=== PATIENT | male | born 1945 | race Caucasian/White ===

== ENCOUNTER 2016-12-06 21:37 | Emergency (ER) | payer MEDICARE, OTHER ==
[~2016-12-06] VITALS: Ht 167.6 cm; Wt 75.5 kg
[~2016-12-06 21:37] MED LIST: ASPI81 PO; HYDR10SO PO; LEVO.125 PO; LISI-363 PO; MEDR4PAK3 PO; OMEP20TA39 PO; OXYC10TA8 PO; PERC5TAB12 PO; ROSU40 PO
[2016-12-06 21:44] VITALS: BP 131/82; PULSE 73; RESP 18; TEMP 98.1; O2SAT 99
[2016-12-06] MEDS ORDERED: LISI-515 PO (22:08)
[2016-12-06] MEDS ORDERED: LEVO137T2 PO (22:08)
--- NOTE | 2016-12-06 22:20 | PD ---
HPI Chief Complaint: Injury Time Seen by Provider: 22:18 Travel History International Travel<30 days: No Contact w/Intl Traveler<30days: No Traveled to known affect area: No History of Present Illness HPI 71-year-old male presents to emergency Department with injury to the right hand and wrist. Patient states he was using a power drill distress in pain when the drill jerked his hand twisting his wrist and arm suddenly. Patient now has pain along the dorsal radial wrist and across the dorsal carpal bones. Patient has difficulty making a fist secondary to pain. Patient states the pain radiates up to HIS elbow on along the dorsal aspect of the forearm. Patient is able to flex and extend his elbow on without difficulty. He has no pain in the upper right arm. He has no other complaints. He has no known drug allergies. PFSH Past Medical History Arthritis: Yes Asthma: No Autoimmune Disease: No Blood Disorders: No Anxiety: No Depression: No Heart Rhythm Problems: No Cancer: Yes (prostate) Cardiovascular Problems: Yes High Cholesterol: Yes Chemotherapy: No Chest Pain: Yes Congestive Heart Failure: No Diabetes: No Endocrine: Yes Gastrointestinal Disorders: Yes (pancreatitis) GERD: Yes Genitourinary: Yes Hepatitis: No Hiatal Hernia: No Hypertension: Yes Immune Disorder: No Musculoskeletal: Yes Neurologic: Yes (recent dizziness with associated dbl vision.) Psychiatric: No Reproductive: No Respiratory: Yes (WEARS NASAL STRIP AT NIGHT TO FACILITATE BREATHING) Pancreatitis: Yes Radiation Therapy: No Seizures: No Thyroid Disease: Yes Ulcer: No Past Surgical History Abdominal Surgery: Yes (APPENDECTOMY D/T RUPTURED AP, CHOLECYSTECTOMY, LAP INGUINAL HERNIA REPAIR L) AICD: No Appendectomy: Yes Cholecystectomy: Yes Ear Surgery: No Eye Surgery: No Genitourinary Surgery: Yes (L TESTICLE REMOVED, SCROTUM SURGERY,removal of prostate due to cancer) Neurologic Surgery: No Oral Surgery: No Pacemaker: No Other Surgery: Yes Social History Alcohol Use: Yes (BEER ONE PK PERMOUTH) Tobacco Use: No Substance Use: No Allergies-Medications (Allergen,Severity, Reaction): Coded Allergies: No Known Allergies (Verified , 12/06/16) Reported Meds & Prescriptions Reported Meds & Active Scripts Active Reported Lisinopril 20 Mg Tab 20 Mg PO DAILY Levothyroxine (Levothyroxine Sodium) 137 Mcg Tab 137 Mcg PO DAILY Review of Systems General / Constitutional: No: Fever Eyes: No: Visual changes HENT: No: Headaches Cardiovascular: No: Chest Pain or Discomfort Respiratory: No: Shortness of Breath Gastrointestinal: No: Abdominal Pain Genitourinary: No: Dysuria Musculoskeletal: Positive: Myalgias, Arthralgias, Limited ROM, Pain Skin: No Rash Neurologic: No: Weakness Psychiatric: No: Depression Endocrine: No: Polydipsia Hematologic/Lymphatic: No: Easy Bruising Physical Exam Narrative GENERAL: Patient appears mild to moderate distress. SKIN: Warm and dry. Normal color. Normal turgor. No signs of trauma. HEAD: Atraumatic. Normocephalic. EYES: Pupils equal and round. No scleral icterus. No injection or drainage. ENT: No nasal bleeding or discharge. Mucous membranes pink and moist. Airway is patent. NECK: Trachea midline. Supple nontender. CARDIOVASCULAR: Regular rate and rhythm. RESPIRATORY: No accessory muscle use. MUSCULOSKELETAL: Extremities without clubbing, cyanosis, or edema. No obvious deformities. Patient has significant tenderness along the right dorsal carpal area warm over the distal radius and the ulnar region. No obvious deformity. Range of motion is significantly diminished secondary to pain along the dorsal wrist and forearm. Neurovascular exam distally is intact and normal. Elbow is unremarkable, however supination and pronation is limited secondary to pain. NEUROLOGICAL: Awake and alert. No obvious cranial nerve deficits. Motor grossly within normal limits. Five out of 5 muscle strength in the arms and legs. Normal speech. PSYCHIATRIC: Appropriate mood and affect; insight and judgment normal. Data Data Last Documented VS Vital Signs Date Time Temp Pulse Resp B/P Pulse Ox O2 Delivery O2 Flow Rate FiO2 12/06/16 21:44 98.1 73 18 131/82 99 Orders Wrist, Complete ([id number]) (12/06/16 22:17) Ketorolac Inj (Toradol Inj) (12/06/16 22:30) Acetamin-Hydrocod 325-7.5 Mg ([place] 7.5 (12/06/16 22:30) Support Splint (12/06/16 22:44) Splint Or Brace Apply/Monitor (12/06/16 22:44) [facility] Medical Decision Making Medical Screen Exam Complete: Yes Emergency Medical Condition: Yes Differential Diagnosis Right wrist sprain. Carpal fracture. Radial fracture. Narrative Course Patient is medically stable at time of exam. Patient is given Lortab 7.5/325 by mouth. Patient is given Toradol 30 mg IM. Ice is applied to the injured area. X-ray of the right wrist is ordered. No obvious fracture dislocation is noted on x-ray by my wet read. Patient is placed in a sugar tong splint and sling for comfort. Patient is given ibuprofen 600 mg 4 times a day #40. Patient also given Lortab 5/325 one to 2 tabs every 6 hours when necessary pain #20. Patient is to keep the splint on and ice as discussed until seen by his primary care physician next week. Patient can return the emergency Department with worsening symptoms if necessary. Diagnosis Primary Impression: Extensor tenosynovitis of right wrist Additional Impression: Other specified sprain of right wrist, initial encounter Referrals: Primary Care Physician Patient Instructions: General Instructions, How to Use a Sling (GEN), Splint Care (DC), Wrist Sprain (ED) Additional Instructions: No obvious fracture dislocation is noted on x-ray by my wet read. Patient is placed in a sugar tong splint and sling for comfort. Patient is given ibuprofen 600 mg 4 times a day #40. Patient also given Lortab 5/325 one to 2 tabs every 6 hours when necessary pain #20. Patient is to keep the splint on and ice as discussed until seen by his primary care physician next week. Patient can return the emergency Department with worsening symptoms if necessary. Med/Other Pt SpecificInfo: Prescription(s) given Scripts Hydrocodone-Acetaminophen (Lortab)5-325 Mg Tab1-2 Tab PO Q6H PRN (PAIN) #20 TAB Prov:Kirti Ward MD 12/06/16 Ibuprofen 600 Mg Glo468 Mg PO Q6H PRN (Pain/Inflammation) #40 TAB Prov:Kirti Ward MD 12/06/16 Disposition: 01 DISCHARGE HOME Condition: Stable Rinku Vasquez Dec 06, 2016 22:20
[2016-12-06] MEDS ORDERED: KETOROLAC TROMETHAMINE 60 MG/2 ML (IM) VIAL IM ONE (22:30)
[2016-12-06] MEDS ORDERED: ACETAMINOPHEN/HYDROcodone 325 MG/7.5 MG TAB PO ONE (22:30)
[2016-12-06] MEDS ORDERED: IBUP-232 PO (22:47)
[2016-12-06] MEDS ORDERED: HYDR-3533 PO (22:47)
--- NOTE | 2016-12-06 23:04 | RADHPO ---
EXAM DATE/TIME: 12/06/2016 22:31 [place] COMPARISON: No previous studies available for comparison. INDICATIONS : Right wrist pain post fall. MEDICAL HISTORY : None. SURGICAL HISTORY : Carpal tunnel syndrome. ENCOUNTER: Initial ACUITY: 1 day PAIN SCORE: 10/10 LOCATION: Right upper extremity FINDINGS: Three view examination of the right wrist demonstrates no soft tissue swelling, dislocation, or fract ure. The carpal bones are in normal alignment. The joint spaces are maintained. Bony mineralizatio n is normal. CONCLUSION: Unremarkable examination of the right wrist. Pablo Santos MD on December 06, 2016 at 23:01 Board Certified Radiologist. This report was verified electronically.
[2016-12-07] MEDS ORDERED: ASPI1TAB69 PO (15:34)
--- NOTE | 2016-12-07 17:04 | MB ---
cc: ART SANTANA MD DATE OF CONSULTATION: 12/07/2016. REASON FOR CONSULTATION: Right wrist and hand pain. HISTORY OF PRESENT ILLNESS: The patient is a 71-year-old right hand-dominant male with history of hypertension who presented to the emergency department yesterday with complaints of a twisting injury to the right wrist. The patient states he was using a power drill and had a twisting injury to the right wrist. The patient states the wrist deviated laterally and bent and flexed. The patient was seen in the emergency room. He had x-rays done which were negative. He was put in a sugar-tong splint, was prescribed anti-inflammatory pain medication and sent home. The patient presented today with worsening pain over the right wrist and hand region. He also complains of a tingling sensation in the thumb and index finger. The patient states the pain is worse with range of motion of the fingers. He also states he has difficulty with finger range of motion as well as wrist range of motion. The patient had difficulty sleeping last night. He denies any open wounds. The patient gives a history of bilateral carpal tunnel release in the past. He denies any history of gout in the past. PHYSICAL EXAMINATION: On examination, the patient is alert, oriented x3 and in pain. Examination of the right upper extremity reveals mild swelling over the dorsal aspect of the wrist. Swelling over the fingers is also noted. Tenderness noted over the dorsal and volar aspects of the wrist. Wrist range of motion is limited and painful. Forearm rotations are painful and limited. Finger range of motion is painful and limited. The volar and dorsal compartments of the forearm appear supple. Hand compartment muscles also appear to be supple. He has intact distal circulation. He also has intact sensation distally. He has a healed surgical scar over the carpal tunnel region. He has palpable radial pulses. LABORATORY DATA: His lab work was reviewed and this was done yesterday and the white count was 13.1. He has a neutrophil shift of 81%. IMAGING STUDIES: X-rays of the right wrist done yesterday were reviewed and show slight widening of the distal radioulnar joint. No evidence of fracture noted. ASSESSMENT: 71-year-old male with a twisting injury to the right wrist for one day with worsening pain. PLAN: My differential diagnosis is either gout or acute carpal tunnel syndrome and exacerbation of carpal tunnel syndrome. The plan will be to keep the limb elevated. Short-arm volar splint was applied leaving the finger joints free. Will start him on oral steroids and will obtain serum uric acid levels. Will monitor the patient with neurovascular checks and monitor his progress. Art Santana MD SE/VONDA /4:37 PM /4:50 PM MTDD
== END 2016-12-06 23:12 | disposition home or self-care (01) ==
LOC: PHEFT 21:37
DX: M65.841 Other synovitis and tenosynovitis, right hand (principal); S63.591A Other specified sprain of right wrist, initial encounter; W22.8XXA Striking against or struck by other objects, initial encounter; Y93.89 Activity, other specified; Y92.9 Unspecified place or not applicable; Y99.9 Unspecified external cause status
CPT/HCPCS: 29125; 73110; 96372; 99283; J1885

== ENCOUNTER 2016-12-07 14:26 | Observation (INO) | payer MEDICARE, OTHER ==
[~2016-12-07] VITALS: Ht 167.6 cm; Wt 73.1 kg
[~2016-12-07 14:26] MED LIST changes: -ASPI81 PO; +HYDR-3533 PO; -HYDR10SO PO; +IBUP-232 PO; -LEVO.125 PO; +LEVO137T2 PO; -LISI-363 PO; +LISI-515 PO; -MEDR4PAK3 PO; -OMEP20TA39 PO; -OXYC10TA8 PO; -PERC5TAB12 PO; -ROSU40 PO
[2016-12-07 14:28] VITALS: BP 156/89; PULSE 62; RESP 22; TEMP 97.7; O2SAT 100
[2016-12-07] MEDS ORDERED: ONDANSETRON HCL 4 MG/2 ML VIAL IV PUSH ONE (14:45)
[2016-12-07] MEDS ORDERED: MORPHINE SULFATE 4 MG/ML INJ IV PUSH ONE (14:45)
--- NOTE | 2016-12-07 15:06 | PD ---
HPI Chief Complaint: Pain: Acute or Chronic Time Seen by Provider: 14:38 Travel History International Travel<30 days: No Contact w/Intl Traveler<30days: No Traveled to known affect area: No History of Present Illness HPI The patient is a 71-year-old male who presents to the emergency department for extreme right hand and wrist pain. The patient states he injured his right hand last night with a drill while stuttering pain. The patient was holding the drill in the right hand, when it jerked back and he had a flexion type injury. The patient was evaluated in the emergency department last night where he had an x-ray of the left wrist which was unremarkable, no acute fracture. The patient was placed in a splint and sling at that time and discharged home on pain medications. The patient has progressing pain to the right wrist that radiates into the hand and down into the mid forearm. The patient states that any passive or active movement of the right hand or wrist severely exacerbates his pain. He also complains of numbness over the radial aspect/extensor surface of the right thumb and mild numbness and tingling of the second and third digits. He has had previous carpal tunnel surgery performed on the wrists bilaterally. The patient is right-hand dominant. The patient's last meal was last night, he was unable to tolerate food earlier today secondary to pain. The patient had T approximately one hour prior to arrival. PFSH Past Medical History Arthritis: Yes Asthma: No Autoimmune Disease: No Blood Disorders: No Anxiety: No Depression: No Heart Rhythm Problems: No Cancer: Yes (prostate) Cardiovascular Problems: Yes High Cholesterol: Yes Chemotherapy: No Chest Pain: Yes Congestive Heart Failure: No Diabetes: No Endocrine: Yes Gastrointestinal Disorders: Yes (pancreatitis) GERD: Yes Genitourinary: Yes Hepatitis: No Hiatal Hernia: No Hypertension: Yes Immune Disorder: No Implanted Vascular Access Dvce: No Musculoskeletal: Yes Neurologic: Yes (recent dizziness with associated dbl vision.) Psychiatric: No Reproductive: No Respiratory: Yes (WEARS NASAL STRIP AT NIGHT TO FACILITATE BREATHING) Pancreatitis: Yes Radiation Therapy: No Seizures: No Thyroid Disease: Yes Ulcer: No ?: Not Past Surgical History Abdominal Surgery: Yes (APPENDECTOMY D/T RUPTURED AP, CHOLECYSTECTOMY, LAP INGUINAL HERNIA REPAIR L) AICD: No Appendectomy: Yes Cholecystectomy: Yes Ear Surgery: No Eye Surgery: No Genitourinary Surgery: Yes (L TESTICLE REMOVED, SCROTUM SURGERY,removal of prostate due to cancer) Neurologic Surgery: No Oral Surgery: No Pacemaker: No Other Surgery: Yes Social History Alcohol Use: Yes (BEER ONE PK PERMOUTH) Tobacco Use: No Substance Use: No Allergies-Medications (Allergen,Severity, Reaction): Coded Allergies: No Known Allergies (Verified , 12/07/16) Reported Meds & Prescriptions Reported Meds & Active Scripts Active Lortab (Hydrocodone-Acetaminophen) 5-325 Mg Tab 1-2 Tab PO Q6H PRN Ibuprofen 600 Mg Tab 600 Mg PO Q6H PRN Reported Aspirin 81 Mg Tabdr 81 Mg PO DAILY Lisinopril 20 Mg Tab 20 Mg PO DAILY Levothyroxine (Levothyroxine Sodium) 137 Mcg Tab 137 Mcg PO DAILY Review of Systems Except as stated in HPI: all other systems reviewed are Neg Cardiovascular: No: Chest Pain or Discomfort Respiratory: No: Shortness of Breath Gastrointestinal: No: Nausea, Vomiting Musculoskeletal: Positive: Limited ROM, Edema, Pain Neurologic: Positive: Paresthesia, Sensory Disturbance Physical Exam Narrative GENERAL: Awake, alert, pleasant 71-year-old male who appears his stated age and is in no acute respiratory distress SKIN: Focused skin assessment warm/dry. HEAD: Atraumatic. Normocephalic. EYES: No injection or drainage. ENT: No nasal bleeding or discharge. Mucous membranes pink and moist. NECK: Trachea midline. No JVD. CARDIOVASCULAR: Regular rate and rhythm. No murmur appreciated. RESPIRATORY: No accessory muscle use. Clear to auscultation. Breath sounds equal bilaterally. GASTROINTESTINAL: Abdomen soft, non-tender, nondistended. MUSCULOSKELETAL: Evaluation of the right wrist does reveal mild edema over the extensor surface of the right hand and right wrist. Light touch of the affected area causes pain. Passive extension of all 5 digits elicits pain. Positive right radial pulse. Mild discoloration/pallor of digits 2, 3, and 4. Mild edema of the hands just distal to the splint markings. Patient is unable to flex or extend the wrist and passive range of motion exacerbates his pain. He is unable to supinate or pronate the right forearm secondary to pain. NEUROLOGICAL: Awake and alert. No obvious cranial nerve deficits. Motor grossly within normal limits. Normal speech. Decreased sensation over the extensor surface of the right hand as well as over the volar aspect of digits 2 and 3. PSYCHIATRIC: Appropriate mood and affect; insight and judgment normal. Data Data Last Documented VS Vital Signs Date Time Temp Pulse Resp B/P Pulse Ox O2 Delivery O2 Flow Rate FiO2 12/07/16 15:36 16 12/07/16 14:28 97.7 62 156/89 100 Orders Morphine Inj (Morphine Inj) (12/07/16 14:45) Ondansetron Inj (Zofran Inj) (12/07/16 14:45) Creatine Kinase (Cpk) (12/07/16 14:44) Lactic Acid (12/07/16 14:44) Complete Blood Count With Diff (12/07/16 14:56) Basic Metabolic Panel (Bmp) (12/07/16 14:56) Act Partial Throm Time (Ptt) (12/07/16 14:56) Prothrombin Time / Inr (Pt) (12/07/16 14:56) Prednisone (Deltasone) (12/07/16 16:15) Uric Acid (12/07/16 16:11) Consult Hand Surgery (12/07/16 ) (Hub Use Only)Inp Phy Cons/Ref (12/07/16 ) Admit Order (Ed Use Only) (12/07/16 16:49) Labs Laboratory Tests Test 12/07/16 12/07/16 15:00 15:15 White Blood Count 13.0 TH/MM3 Red Blood Count 6.06 MIL/MM3 Hemoglobin 16.2 GM/DL Hematocrit 50.2 % Mean Corpuscular Volume 82.8 FL Mean Corpuscular Hemoglobin 26.8 PG Mean Corpuscular Hemoglobin 32.4 % Concent Red Cell Distribution Width 12.8 % Platelet Count 204 TH/MM3 Mean Platelet Volume 9.6 FL Neutrophils (%) (Auto) 81.2 % Lymphocytes (%) (Auto) 8.8 % Monocytes (%) (Auto) 5.2 % Eosinophils (%) (Auto) 3.3 % Basophils (%) (Auto) 1.5 % Neutrophils # (Auto) 10.6 TH/MM3 Lymphocytes # (Auto) 1.1 TH/MM3 Monocytes # (Auto) 0.7 TH/MM3 Eosinophils # (Auto) 0.4 TH/MM3 Basophils # (Auto) 0.2 TH/MM3 CBC Comment DIFF FINAL Differential Comment Sodium Level 141 MEQ/L Potassium Level 3.8 MEQ/L Chloride Level 108 MEQ/L Carbon Dioxide Level 20.9 MEQ/L Anion Gap 12 MEQ/L Blood Urea Nitrogen 17 MG/DL Creatinine 1.10 MG/DL Estimat Glomerular Filtration 66 ML/MIN Rate Random Glucose 132 MG/DL Lactic Acid Level 2.1 mmol/L Calcium Level 9.1 MG/DL Total Creatine Kinase 129 U/L Prothrombin Time 10.9 SEC Prothromb Time International 1.0 RATIO Ratio Activated Partial 27.0 SEC Thromboplast Time MDM Medical Decision Making Medical Screen Exam Complete: Yes Emergency Medical Condition: Yes Medical Record Reviewed: Yes Interpretation(s) Laboratory Tests Test 12/07/16 12/07/16 15:00 15:15 White Blood Count 13.0 TH/MM3 Red Blood Count 6.06 MIL/MM3 Hemoglobin 16.2 GM/DL Hematocrit 50.2 % Mean Corpuscular Volume 82.8 FL Mean Corpuscular Hemoglobin 26.8 PG Mean Corpuscular Hemoglobin 32.4 % Concent Red Cell Distribution Width 12.8 % Platelet Count 204 TH/MM3 Mean Platelet Volume 9.6 FL Neutrophils (%) (Auto) 81.2 % Lymphocytes (%) (Auto) 8.8 % Monocytes (%) (Auto) 5.2 % Eosinophils (%) (Auto) 3.3 % Basophils (%) (Auto) 1.5 % Neutrophils # (Auto) 10.6 TH/MM3 Lymphocytes # (Auto) 1.1 TH/MM3 Monocytes # (Auto) 0.7 TH/MM3 Eosinophils # (Auto) 0.4 TH/MM3 Basophils # (Auto) 0.2 TH/MM3 CBC Comment DIFF FINAL Differential Comment Sodium Level 141 MEQ/L Potassium Level 3.8 MEQ/L Chloride Level 108 MEQ/L Carbon Dioxide Level 20.9 MEQ/L Anion Gap 12 MEQ/L Blood Urea Nitrogen 17 MG/DL Creatinine 1.10 MG/DL Estimat Glomerular Filtration 66 ML/MIN Rate Random Glucose 132 MG/DL Lactic Acid Level 2.1 mmol/L Calcium Level 9.1 MG/DL Total Creatine Kinase 129 U/L Prothrombin Time 10.9 SEC Prothromb Time International 1.0 RATIO Ratio Activated Partial 27.0 SEC Thromboplast Time Differential Diagnosis Differential diagnosis includes traumatic tenosynovitis, compartment syndrome, hematoma, contusion, occult fracture. Narrative Course The patient had the splint/sling removed. The arm was examined, he has severe pain out of proportion to exam and pain with passive extension of digits 1 through 5. Patient does have mild edema. There is a concern for possible compartment syndrome from traumatic injury, although there is no underlying fracture. I reviewed the EMR and the x-ray performed last night, there is no visible fracture. The patient had an IV established, labs are drawn and sent, and the patient was placed on cardiac telemetry monitoring and continuous pulse oximetry monitoring. I do discussion with the on-call hand surgeon, Dr. Yao, who will evaluate the patient in the emergency department. The right hand was elevated. The patient was provided morphine and Zofran for his pain and will be kept nothing by mouth. The patient's lactate was mildly elevated at 2.1, CPK was normal. The patient was evaluated by the hand surgeon at bedside who request uric acid level for possible arthropathy including gout and 23 hour observation to the medicine team to reevaluate the patient's neurologic/vascular status. The patient may have an injury to the median nerve , he does not believe it is acute compartment syndrome, but request observation. The patient's primary physician is Dr. Juan Alberto Melendez, therefore, [facility] were paged for 23 hour observation. Physician Communication Physician Communication The [facility] were paged for 23 hour observation. I discussed the patient with Dr. Winchester who agrees with 23 hour observation. Diagnosis Primary Impression: Left wrist pain Admitting Information Admitting Physician Requests: Observation Condition: Stable Kareem Mccabe MD Dec 07, 2016 15:06
[2016-12-07 15:10] LABS: AUTOMATED NEUTROPHIL # 10.6 TH/MM3 (1.8-7.7); BASOPHIL # 0.2 TH/MM3 (0-0.2); BASOPHIL % 1.5 % (0.0-2.0); EOSINOPHIL # 0.4 TH/MM3 (0-0.4); EOSINOPHIL % 3.3 % (0.0-4.0); HEMATOCRIT 50.2 % (39.0-51.0); LYMPH % 8.8 % (9.0-44.0); LYMPHOCYTE # 1.1 TH/MM3 (1.0-4.8); MEAN CELL VOLUME 82.8 FL (80.0-100.0); MEAN CORPUSCULAR HEMOGLOBIN 26.8 PG (27.0-34.0); MEAN CORPUSCULAR HGB CONC 32.4 % (32.0-36.0); MONO % 5.2 % (0.0-8.0); NEUT % 81.2 % (16.0-70.0); PLATELET COUNT 204 TH/MM3 (150-450); RED BLOOD COUNT 6.06 MIL/MM3 (4.50-5.90); RED CELL DISTRIBUTION WIDTH 12.8 % (11.6-17.2)
[2016-12-07 15:17] LABS: HEMO FLAGS DIFF FINAL
[2016-12-07 15:19] LABS: POTASSIUM 3.8 MEQ/L (3.5-5.1)
[2016-12-07 15:22] LABS: BICARBONATE 20.9 MEQ/L (21.0-32.0)
[2016-12-07] MEDS ORDERED: ASPI1TAB69 PO (15:34)
[2016-12-07 15:39] LABS: PROTHROMBIN TIME - PATIENT 10.9 SEC (9.8-11.6)
[2016-12-07] MEDS ORDERED: predniSONE 50 MG TAB PO ONE (16:15)
[2016-12-07] MEDS ORDERED: NALOXONE HCL 0.4 MG/ML AMP IV PRN (17:00)
[2016-12-07] MEDS ORDERED: ONDANSETRON HCL 4 MG/2 ML VIAL IVP PRN (17:00)
[2016-12-07] MEDS ORDERED: ACETAMINOPHEN 325 MG TAB PO PRN (17:00)
[2016-12-07] MEDS ORDERED: SODIUM CHLORIDE 0.9% FLUSH 10 ML FLUSH IV FLUSH PRN (17:00)
[2016-12-07] MEDS ORDERED: IBUPROFEN 600 MG TAB PO PRN (17:00)
[2016-12-07] MEDS ORDERED: MORPHINE SULFATE 4 MG/ML INJ IV PUSH PRN (17:00)
[2016-12-07 17:17] VITALS: BP 125/75; PULSE 68; RESP 16; O2SAT 98
--- NOTE | 2016-12-07 17:29 | HHI.HP ---
[facility] Service [facility] Primary Care Physician Juan Alberto Melendez DO Admission Diagnosis right wrist pain rule out compartment syndrome versus arthropathy Diagnoses: Travel History International Travel<30 Days: No Contact w/Intl Traveler <30 Da: No Traveled to Known Affected Are: No Past Family Social History Allergies: Coded Allergies: No Known Allergies (Verified , 12/07/16) Physical Exam Vital Signs Vital Signs Date Time Temp Pulse Resp B/P Pulse Ox O2 Delivery O2 Flow Rate FiO2 12/07/16 17:17 68 16 125/75 98 Room Air 12/07/16 15:36 16 12/07/16 14:55 16 12/07/16 14:28 97.7 62 22 156/89 100 Physical Exam GENERAL: This is a well-nourished, well-developed patient, in no apparent distress. SKIN: No rashes, ecchymoses or lesions. Cool and dry. HEAD: Atraumatic. Normocephalic. No temporal or scalp tenderness. EYES: Pupils equal round and reactive. Extraocular motions intact. No scleral icterus. No injection or drainage. ENT: Nose without bleeding, purulent drainage or septal hematoma. Throat without erythema, tonsillar hypertrophy or exudate. Uvula midline. Airway patent. NECK: Trachea midline. No JVD or lymphadenopathy. Supple, nontender, no meningeal signs. CARDIOVASCULAR: Regular rate and rhythm without murmurs, gallops, or rubs. RESPIRATORY: Clear to auscultation. Breath sounds equal bilaterally. No wheezes , rales, or rhonchi. GASTROINTESTINAL: Abdomen soft, non-tender, nondistended. No hepato-splenomegaly , or palpable masses. No guarding. MUSCULOSKELETAL: Extremities without clubbing, cyanosis, or edema. No joint tenderness, effusion, or edema noted. No calf tenderness. Negative Homans sign bilaterally. NEUROLOGICAL: Awake and alert. Cranial nerves II through XII intact. Motor and sensory grossly within normal limits. Five out of 5 muscle strength in all muscle groups. Normal speech. Laboratory Laboratory Tests Test 12/07/16 12/07/16 15:00 15:15 White Blood Count 13.0 Red Blood Count 6.06 Hemoglobin 16.2 Hematocrit 50.2 Mean Corpuscular Volume 82.8 Mean Corpuscular Hemoglobin 26.8 Mean Corpuscular Hemoglobin 32.4 Concent Red Cell Distribution Width 12.8 Platelet Count 204 Mean Platelet Volume 9.6 Neutrophils (%) (Auto) 81.2 Lymphocytes (%) (Auto) 8.8 Monocytes (%) (Auto) 5.2 Eosinophils (%) (Auto) 3.3 Basophils (%) (Auto) 1.5 Neutrophils # (Auto) 10.6 Lymphocytes # (Auto) 1.1 Monocytes # (Auto) 0.7 Eosinophils # (Auto) 0.4 Basophils # (Auto) 0.2 CBC Comment DIFF FINAL Differential Comment Sodium Level 141 Potassium Level 3.8 Chloride Level 108 Carbon Dioxide Level 20.9 Anion Gap 12 Blood Urea Nitrogen 17 Creatinine 1.10 Estimat Glomerular Filtration 66 Rate Random Glucose 132 Lactic Acid Level 2.1 Calcium Level 9.1 Total Creatine Kinase 129 Prothrombin Time 10.9 Prothromb Time International 1.0 Ratio Activated Partial 27.0 Thromboplast Time Result Diagram: 12/07/16 1500 12/07/161499 Ana Winchester MD Dec 07, 2016 17:29
[2016-12-07 17:48] VITALS: BP 121/69
[2016-12-07 17:50] VITALS: BP 133/77; PULSE 59; RESP 18; TEMP 97.5; O2SAT 98
[2016-12-07] MEDS: HEPARIN SODIUM - SQ 10,000 UNITS/ML VIAL SQ SCH (18:21)
[2016-12-07 20:00] VITALS: BP 142/84; PULSE 80; RESP 20; TEMP 97.4; O2SAT 97
[2016-12-07] MEDS: SODIUM CHLORIDE 0.9% FLUSH 10 ML FLUSH IV FLUSH SCH (20:32)
[2016-12-07] MEDS: ACETAMINOPHEN/HYDROcodone 325 MG/5 MG TAB PO PRN (20:33)
[2016-12-08] VITALS: BP 109/69; PULSE 101; PULSE 61; RESP 20; TEMP 96.6; O2SAT 97
[2016-12-08] MEDS ORDERED: LEVOTHYROXINE SODIUM 25 MCG TAB PO SCH (06:00)
[2016-12-08] MEDS ORDERED: LEVOTHYROXINE SODIUM 112 MCG TAB PO SCH (06:00)
[2016-12-08] MEDS: ACETAMINOPHEN/HYDROcodone 325 MG/5 MG TAB PO PRN (06:49)
[2016-12-08] MEDS: HEPARIN SODIUM - SQ 10,000 UNITS/ML VIAL SQ SCH (06:49)
[2016-12-08 08:00] VITALS: BP 140/88; PULSE 56; RESP 17; TEMP 98.2; O2SAT 99
[2016-12-08 08:37] LABS: AUTOMATED NEUTROPHIL # 12.2 TH/MM3 (1.8-7.7); BASOPHIL % 0.3 % (0.0-2.0); EOSINOPHIL % 0.3 % (0.0-4.0); HEMATOCRIT 52.1 % (39.0-51.0); LYMPH % 11.3 % (9.0-44.0); LYMPHOCYTE # 1.7 TH/MM3 (1.0-4.8); MEAN CELL VOLUME 84.6 FL (80.0-100.0); MEAN CORPUSCULAR HEMOGLOBIN 26.7 PG (27.0-34.0); MEAN CORPUSCULAR HGB CONC 31.6 % (32.0-36.0); NEUT % 82.1 % (16.0-70.0); PLATELET COUNT 221 TH/MM3 (150-450); RED BLOOD COUNT 6.15 MIL/MM3 (4.50-5.90); RED CELL DISTRIBUTION WIDTH 13.7 % (11.6-17.2); WHITE BLOOD COUNT 14.8 TH/MM3 (4.0-11.0)
[2016-12-08 08:40] LABS: POTASSIUM 4.1 MEQ/L (3.5-5.1)
[2016-12-08 08:45] LABS: BICARBONATE 26.2 MEQ/L (21.0-32.0)
[2016-12-08 08:46] LABS: HEMO FLAGS DIFF FINAL
[2016-12-08] MEDS ORDERED: ASPIRIN EC 81 MG TABEC PO SCH (09:00)
[2016-12-08] MEDS ORDERED: LISINOPRIL 20 MG TAB PO SCH (09:00)
[2016-12-08] MEDS: SODIUM CHLORIDE 0.9% FLUSH 10 ML FLUSH IV FLUSH SCH (09:58)
[2016-12-08] MEDS ORDERED: MEDR4PAK PO (10:11)
--- NOTE | 2016-12-08 12:17 | MH ---
cc: ISAAC REICH MD DATE OF ADMISSION: 12/07/2016 CHIEF COMPLAINT Right hand injury. HISTORY OF PRESENT ILLNESS This is a 71-year-old male with past medical-surgical history significant for pancreatitis, GERD, history of appendectomy secondary to ruptured appendix, cholecystectomy, laparoscopy, inguinal hernia repair left-side, left testicle removed, removal of prostate due to cancer, history of prostate cancer, hypothyroidism, hypertension, arthritis. The patient came to the ER at [facility] complaining of extreme pain right hand and wrist. The patient stated that he injured his right hand and wrist last night with a drill. The patient was holding the drill in the right hand and it jerked black. He has a flexion type injury. The patient was evaluated in the emergency department and had an x-ray of the left wrist which was unremarkable, no acute fracture. The patient was placed in a splint and sling at that time and discharged home on pain medication. The patient had worsening of the pain and the pain radiated to the mid forearm. The pain was worse 7 out of 10. Any active and passive range of motion on the right hand causes worsening of the pain. He is also complaining of numbness over the medial aspect extensor of the right thumb and mild numbness and tingling of the second and third digit. He has had previous carpal tunnel surgery performed on the wrist bilaterally. He is right hand dominant. Other than that, nothing significant. PAST MEDICAL HISTORY, PAST SURGICAL HISTORY: As dictated above. SOCIAL HISTORY: Denies smoking, drinks socially. Denies any drug abuse. Lives at home alone. He is retired from the . FAMILY HISTORY: Significant for cancer. ALLERGIES: No drug allergies. MEDICATIONS: 1. Lortab 5/325 one to two p.o. q6 hours p.r.n. pain 2. Ibuprofen 600 milligrams p.o. q6 hours p.r.n. pain 3. Aspirin 81 milligrams p.o. daily 4. Lisinopril 20 milligrams p.o. daily 5. Levothyroxine 137 mcg p.o. daily REVIEW OF SYSTEMS: Review of systems is positive for right hand pain, right hand in splint. PHYSICAL EXAMINATION This is a 71 year-old male laying on the bed, not in acute distress. Vital signs: Temperature 98.2, heart rate 56, respirations 70, blood pressure 140/88, O2 saturation 99% room air. HEENT: Normocephalic, atraumatic. EOMI. Oral mucosa moist. NECK: Supple. No visible thyromegaly or neck mass. Trachea central. CVS: Regular rate and rhythm. RESPIRATION: Clear to auscultation bilaterally. ABDOMEN: Soft, nontender. Bowel sound heard. EXTREMITIES: Shows mild edema of the right wrist, over the extensor surface of the right hand and right wrist. Palpation causes pain. Passive extension of all five digits elicits pain. Right radial pulse palpable. Mild distal pallor of digit 2, 3 and 4. Mild edema of the hand just distal to ___ marking. Patient is unable to flex or extend the wrist and passive range of motion exacerbates the pain. Unable to supinate or pronate the right forearm secondary to pain. Decreased sensation of the extensor surface of the right hand as well as over the volar aspect of digit 2 and 3. NEUROLOGIC: Awake, alert, oriented x4. Decreased sensation over the right extensor surface of the right hand as well as over the volar aspect of the digit 2 and 3. PSYCHIATRIC: Patient is cooperative. LABORATORY DATA Include CBC showed WBC count 14.8 high, hemoglobin 16.0, hematocrit 52.1 high, MCH 26.7 low, MCHC 31.6 low, platelet count is normal 221. BMP totally unremarkable except for glucose 85 low, uric acid level 7.4 high, total creatinine kinase 129, calcium 9.1, lactic acid 2.1, PT 10.9, INR 1.0, APTT 27.0. ASSESSMENT/PLAN This is a 38 year-old male who came to the emergency room diagnosed with injury to the right hand, seen by the hand surgeon. Okay to discharge per the hand surgeon. Needs Medrol Dosepak. Need to follow with hand surgeon in two to three days. History of hypothyroidism, continue home medications. History of hypothyroidism, continue home medication. Okay to discharge the patient home. Otherwise follow up with PCP and hand surgeon. Isaac Reich MD EA/EDITH /11:03 AM /11:52 AM
== END 2016-12-08 11:46 | disposition home or self-care (01) ==
LOC: PHEFT 14:26 → PHEDA 16:50 → UNDOADMOB 16:50 → PH3B 17:50 → PHEDA 17:50 → UNDODISOB 12-08 11:46
PROVIDERS: ADMIT Family Medicine; ATTEND Family Medicine
DX: S69.91XA Unspecified injury of right wrist, hand and finger(s), initial encounter (principal); I10 Essential (primary) hypertension; K21.9 Gastro-esophageal reflux disease without esophagitis; M19.90 Unspecified osteoarthritis, unspecified site; E78.00 Pure hypercholesterolemia, unspecified; E03.9 Hypothyroidism, unspecified; Z85.46 Personal history of malignant neoplasm of prostate; Z79.82 Long term (current) use of aspirin; W31.1XXA Contact with metalworking machines, initial encounter
CPT/HCPCS: 80048; 82550; 83605; 84550; 85025; 85610; 85730; 96374; 96375; 99284; G0378; J1644; J2270; J2405; J7512